=== PATIENT | female | born 1930 | race Caucasian/White ===

== ENCOUNTER 2017-02-02 10:55 | Observation (INO) | payer MEDICARE, OTHER ==
[2017-02-02] VITALS (8 sets, daily range): BP systolic 120–150; BP diastolic 65–77; PULSE 58–76; RESP 16–20; TEMP 97.8–97.9; O2SAT 96–99
[~2017-02-02] VITALS: Ht 162.6 cm; Wt 52.0 kg
[2017-02-02] MEDS ORDERED: ASPI1TAB69 PO (11:04)
[2017-02-02] MEDS ORDERED: PRAV10TA PO (11:04)
--- NOTE | 2017-02-02 11:06 | PD ---
HPI Chief Complaint: Fall Time Seen by Provider: 11:06 Travel History International Travel<30 days: No Contact w/Intl Traveler<30days: No Traveled to known affect area: No History of Present Illness HPI 86-year-old female came to the emergency room with history of fall while she was using her walker. One of the leg of the walker got caught and she tripped and fell. After she fell she hit her head on the floor and bled. This made her pass out she said. When she got up she cleaned the floor and wiped out blood and called the EMS and came to the emergency room. Here she is awake and answering questions appropriately. She remembers the event. Vital signs are stable. FORMERLY [facility] Past Medical History Narrative Medical List of her past medical, surgical, social and family history was reviewed from the nursing note. Hx Anticoagulant Therapy: Yes (ASA 81 MG PO) Arthritis: Yes Asthma: No Autoimmune Disease: No Heart Rhythm Problems: Yes (murmur) Cardiovascular Problems: Yes High Cholesterol: Yes Chest Pain: Yes Congestive Heart Failure: No COPD: No Cerebrovascular Accident: No Diabetes: No GERD: No Glaucoma: No Headaches: No Hepatitis: No Hiatal Hernia: No Hypertension: No Kidney Stones: No Myocardial Infarction: No Renal Failure: No Seizures: No Sleep Apnea: No Thyroid Disease: No Ulcer: No ?: Not Past Surgical History Abdominal Surgery: No AICD: No Cardiac Surgery: No Ear Surgery: No Endocrine Surgery: No Eye Surgery: No Genitourinary Surgery: No Gynecologic Surgery: No Oral Surgery: No Pacemaker: No Thoracic Surgery: No Social History Alcohol Use: Yes Tobacco Use: No Substance Use: No Allergies-Medications (Allergen,Severity, Reaction): Coded Allergies: No Known Allergies (Verified , 02/02/17) Comments No known drug allergies. Reported Meds & Prescriptions Reported Meds & Active Scripts Active Reported Pravastatin 10 Mg Tab 10 Mg PO HS Aspirin 81 Mg Tabdr 81 Mg PO DAILY Narrative Medication List of her home medications reviewed from the nursing note. Review of Systems Except as stated in HPI: all other systems reviewed are Neg Physical Exam Narrative GENERAL: Awake, alert, elderly, no obvious distress SKIN: Warm and dry. HEAD: 2 cm laceration on the left side of her forehead. Bleeding controlled EYES: Pupils equal and round. No scleral icterus. No injection or drainage. ENT: No nasal bleeding or discharge. Mucous membranes pink and moist. NECK: Trachea midline. No JVD. CARDIOVASCULAR: Regular rate and rhythm. No murmur appreciated. RESPIRATORY: No accessory muscle use. Clear to auscultation. Breath sounds equal bilaterally. GASTROINTESTINAL: Abdomen soft, non-tender, nondistended. Hepatic and splenic margins not palpable. MUSCULOSKELETAL: No obvious deformities. No clubbing. No cyanosis. No edema. NEUROLOGICAL: Awake and alert. No obvious cranial nerve deficits. Motor grossly within normal limits. Normal speech. PSYCHIATRIC: Appropriate mood and affect; insight and judgment normal. Data Data Last Documented VS Vital Signs Date Time Temp Pulse Resp B/P Pulse Ox O2 Delivery O2 Flow Rate FiO2 02/02/17 12:30 58 17 150/65 99 Room Air 02/02/17 10:59 97.8 Orders Electrocardiogram (02/02/17 ) Complete Blood Count With Diff (02/02/17 11:14) Basic Metabolic Panel (Bmp) (02/02/17 11:14) Troponin I (02/02/17 11:14) Ct Brain W/O Iv Contrast(Rout) (02/02/17 11:14) Ecg Monitoring (02/02/17 11:14) Iv Access Insert/Monitor (02/02/17 11:14) Oximetry (02/02/17 11:14) Sodium Chloride 0.9% Flush (Ns Flush) (02/02/17 11:15) Ct Cerv Spine W/O Contrast (02/02/17 ) Sodium Chlor 0.9% 250 Ml Inj (Ns 250 Ml (02/02/17 11:15) Tetanus/Diphtheria Tox Adult (Tetanus/Di (02/02/17 11:15) Chest, Single Ap (02/02/17 ) Wound Care (02/02/17 12:53) Lidocai-Epi 1%-1:100,000 Inj (Xylocaine- (02/02/17 13:00) Admit Order (Ed Use Only) (02/02/17 13:18) Aspirin Ec (Ecotrin Ec) (02/03/17 09:00) Pravastatin (Pravachol) (02/02/17 21:00) Labs Laboratory Tests Test 02/02/17 11:00 White Blood Count 11.6 TH/MM3 Red Blood Count 3.81 MIL/MM3 Hemoglobin 11.7 GM/DL Hematocrit 34.0 % Mean Corpuscular Volume 89.4 FL Mean Corpuscular Hemoglobin 30.6 PG Mean Corpuscular Hemoglobin 34.3 % Concent Red Cell Distribution Width 14.2 % Platelet Count 209 TH/MM3 Mean Platelet Volume 9.0 FL Neutrophils (%) (Auto) 90.5 % Lymphocytes (%) (Auto) 5.5 % Monocytes (%) (Auto) 3.4 % Eosinophils (%) (Auto) 0.2 % Basophils (%) (Auto) 0.4 % Neutrophils # (Auto) 10.5 TH/MM3 Lymphocytes # (Auto) 0.6 TH/MM3 Monocytes # (Auto) 0.4 TH/MM3 Eosinophils # (Auto) 0.0 TH/MM3 Basophils # (Auto) 0.1 TH/MM3 CBC Comment DIFF FINAL Differential Comment Sodium Level 139 MEQ/L Potassium Level 3.9 MEQ/L Chloride Level 104 MEQ/L Carbon Dioxide Level 27.2 MEQ/L Anion Gap 8 MEQ/L Blood Urea Nitrogen 19 MG/DL Creatinine 1.04 MG/DL Estimat Glomerular Filtration 50 ML/MIN Rate Random Glucose 140 MG/DL Calcium Level 9.0 MG/DL Troponin I 0.02 NG/ML MDM Medical Decision Making Medical Screen Exam Complete: Yes Emergency Medical Condition: Yes Medical Record Reviewed: Yes Interpretation(s) Twelve-lead EKG was reviewed by me. Normal sinus rhythm, left axis deviation, bradycardia, prolonged QT, nonspecific ST-T wave changes. Heart rate of 57 bpm. Differential Diagnosis Intracranial bleed, head injury, electrolyte abnormality Narrative Course 1:05 PM blood test and CT scan reports of back and within normal limit. The PA will take care of the laceration. Please refer to his note regarding the procedure. I would like to admit the patient for overnight observation because of the syncope and prolonged QT syndrome. Especially since she lives by herself at home. Procedures EKG Prior to Arrival: Yes Diagnosis Primary Impression: Syncope Qualified Code: R55 - Syncope, unspecified syncope type Additional Impressions: Head injury Qualified Code: S09.90XA - Head injury, initial encounter Prolonged Q-T interval on ECG Admitting Information Admitting Physician Requests: Observation Jose Harrison MD Feb 02, 2017 11:06
[2017-02-02] MEDS ORDERED: SODIUM CHLORIDE 0.9% FLUSH 5 ML FLUSH IVF PRN (11:15)
[2017-02-02] MEDS ORDERED: TETANUS/DIPHTHERIA TOXOID ADULT 0.5 ML VIAL IM ONE (11:15)
[2017-02-02] MEDS ORDERED: SODIUM CHLOR 0.9% 250 ML INJ 250 ML IV ONE (11:15)
[2017-02-02 11:38] LABS: AUTOMATED NEUTROPHIL # 10.5 TH/MM3 (1.8-7.7); BASOPHIL # 0.1 TH/MM3 (0-0.2); BASOPHIL % 0.4 % (0.0-2.0); EOSINOPHIL % 0.2 % (0.0-4.0); HEMO FLAGS DIFF FINAL; LYMPH % 5.5 % (9.0-44.0); LYMPHOCYTE # 0.6 TH/MM3 (1.0-4.8); MEAN CELL VOLUME 89.4 FL (80.0-100.0); MEAN CORPUSCULAR HEMOGLOBIN 30.6 PG (27.0-34.0); MEAN CORPUSCULAR HGB CONC 34.3 % (32.0-36.0); MONO % 3.4 % (0.0-8.0); NEUT % 90.5 % (16.0-70.0); PLATELET COUNT 209 TH/MM3 (150-450); RED BLOOD COUNT 3.81 MIL/MM3 (4.00-5.30); RED CELL DISTRIBUTION WIDTH 14.2 % (11.6-17.2); WHITE BLOOD COUNT 11.6 TH/MM3 (4.0-11.0)
[2017-02-02 11:59] LABS: BICARBONATE 27.2 MEQ/L (21.0-32.0); POTASSIUM 3.9 MEQ/L (3.5-5.1)
--- NOTE | 2017-02-02 12:08 | RADRPT ---
EXAM DATE/TIME: 02/02/2017 11:57 [facility] COMPARISON: No previous studies available for comparison. INDICATIONS : Weakness, fall, laceration on left side of face RADIATION DOSE: 31.84 CTDIvol (mGy) MEDICAL HISTORY : Cardiovascular disease. SURGICAL HISTORY : None. ENCOUNTER: Initial ACUITY: 1 day PAIN SCALE: 2/10 LOCATION: cranial TECHNIQUE: Multiple contiguous axial images were obtained of the head. Using automated exposure control and adj ustment of the mA and/or kV according to patient size, radiation dose was kept as low as reasonably a chievable to obtain optimal diagnostic quality images. FINDINGS: CEREBRUM: Atrophy. Area of low attenuation change involving the cortex and subcortical white matter of the left frontal lobe and left temporal lobe. The ventricles are normal for age. No evidence of midline shif t, mass lesion, hemorrhage or acute infarction. No extra-axial fluid collections are seen. POSTERIOR FOSSA: The cerebellum and brainstem are intact. The 4th ventricle is midline. The cerebellopontine angle i s unremarkable. EXTRACRANIAL: The visualized portion of the orbits is intact. SKULL: The calvaria is intact. No evidence of skull fracture. CONCLUSION: 1. No acute intracranial abnormality. 2. Area of encephalomalacia involving the left frontal lobe and left temporal lobe. Caesar Holley Jr., MD on February 02, 2017 at 12:02 Board Certified Radiologist. This report was verified electronically.
--- NOTE | 2017-02-02 12:09 | RADRPT ---
EXAM DATE/TIME: 02/02/2017 11:26 [facility] COMPARISON: No previous studies available for comparison. INDICATIONS : Syncope. MEDICAL HISTORY : None. SURGICAL HISTORY : None. ENCOUNTER: Initial ACUITY: 1 day PAIN SCORE: 0/10 LOCATION: Bilateral chest FINDINGS: The lungs are hyperinflated. There is no evidence of acute airspace disease, congestion or suspicious mass densities. Heart is mildly enlarged. CONCLUSION: Cardiomegaly without evidence of acute process. COPD Garrett Fagan MD on February 02, 2017 at 12:03 Board Certified Radiologist. This report was verified electronically.
--- NOTE | 2017-02-02 12:56 | RADRPT ---
EXAM DATE/TIME: 02/02/2017 11:57 [facility] COMPARISON: No previous studies available for comparison. INDICATIONS : Weakness, fall. Posterior neck pain. RADIATION DOSE: 12.52 CTDIvol (mGy) MEDICAL HISTORY : Cardiovascular disease. SURGICAL HISTORY : None. ENCOUNTER: Initial ACUITY: 2 days PAIN SCALE: 4/10 LOCATION: Neck posterior TECHNIQUE: Volumetric scanning of the cervical spine was performed. Multiplanar reconstructions i n the sagittal, coronal and oblique axial planes were performed. Using automated exposure control a nd adjustment of the mA and/or kV according to patient size, radiation dose was kept as low as reason ably achievable to obtain optimal diagnostic quality images. FINDINGS: VERTEBRAE: Normal vertebral body height. ALIGNMENT: There is mild anterior subluxation of C6 on C7 and C7 on T1 in the order of 2 mm likel y secondary to a facet hypertrophy. C2-C3: The disc space is grossly intact. A significant impression on the thecal sac is not seen. T here is prominent right facet hypertrophy. The neural foramina are grossly normal. C3-C4: The posterior disc margin is grossly intact. Significant spinal stenosis is not appreciated. There is bilateral facet hypertrophy being worse on the right. There is some narrowing of the righ t neural foramen. C4-C5: The posterior disc margin is grossly intact. A significant impression on the thecal sac is n ot seen. There is bilateral facet hypertrophy being worse on the right. There is some narrowing of the right neural foramen. The left neural foramen appears intact. There is mild uncovertebral hyper trophy at this level. C5-C6: The disc space is narrowed. There is a vacuum phenomenon. There is posterior osteophytic ri dging. This causes a mild impression on the thecal sac. There is uncovertebral and facet hypertroph y. There is minimal narrowing of the neural foramina. C6-C7: Again noted is the anterior subluxation of C6 on C7. The posterior disc margin appears gross ly intact. Significant spinal stenosis is not seen. The neural foramina are normal. There is bilat eral facet hypertrophy. C7-T1: Again noted is the mild anterior subluxation of C7 on T1. A significant impression on the th ecal sac is not seen. The neural foramina are normal. There is moderate bilateral facet hypertrophy . CONCLUSION: Degenerative change throughout as described above. An acute bony abnormality is not seen. Kameron Fu MD on February 02, 2017 at 12:45 Board Certified Radiologist. This report was verified electronically.
[2017-02-02] MEDS: LIDOCAINE 1%/EPINEPHrine 1:100,000 SOLN 20 ML VIAL INFIL ONE ×2 (12:58→13:18)
--- NOTE | 2017-02-02 13:10 | PD ---
Physical Exam Date Seen by Provider: Feb 02, 2017 Time Seen by Provider: 13:09 Narrative 86-year-old female that presents to the ED for evaluation of laceration. Please refer to my attendings note as I was asked by my attending to repair laceration. Data Data Last Documented VS Vital Signs Date Time Temp Pulse Resp B/P Pulse Ox O2 Delivery O2 Flow Rate FiO2 02/02/17 12:30 58 17 150/65 99 Room Air 02/02/17 10:59 97.8 Orders Electrocardiogram (02/02/17 ) Complete Blood Count With Diff (02/02/17 11:14) Basic Metabolic Panel (Bmp) (02/02/17 11:14) Troponin I (02/02/17 11:14) Ct Brain W/O Iv Contrast(Rout) (02/02/17 11:14) Ecg Monitoring (02/02/17 11:14) Iv Access Insert/Monitor (02/02/17 11:14) Oximetry (02/02/17 11:14) Sodium Chloride 0.9% Flush (Ns Flush) (02/02/17 11:15) Ct Cerv Spine W/O Contrast (02/02/17 ) Sodium Chlor 0.9% 250 Ml Inj (Ns 250 Ml (02/02/17 11:15) Tetanus/Diphtheria Tox Adult (Tetanus/Di (02/02/17 11:15) Chest, Single Ap (02/02/17 ) Wound Care (02/02/17 12:53) Lidocai-Epi 1%-1:100,000 Inj (Xylocaine- (02/02/17 13:00) Labs Laboratory Tests Test 02/02/17 11:00 White Blood Count 11.6 TH/MM3 Red Blood Count 3.81 MIL/MM3 Hemoglobin 11.7 GM/DL Hematocrit 34.0 % Mean Corpuscular Volume 89.4 FL Mean Corpuscular Hemoglobin 30.6 PG Mean Corpuscular Hemoglobin 34.3 % Concent Red Cell Distribution Width 14.2 % Platelet Count 209 TH/MM3 Mean Platelet Volume 9.0 FL Neutrophils (%) (Auto) 90.5 % Lymphocytes (%) (Auto) 5.5 % Monocytes (%) (Auto) 3.4 % Eosinophils (%) (Auto) 0.2 % Basophils (%) (Auto) 0.4 % Neutrophils # (Auto) 10.5 TH/MM3 Lymphocytes # (Auto) 0.6 TH/MM3 Monocytes # (Auto) 0.4 TH/MM3 Eosinophils # (Auto) 0.0 TH/MM3 Basophils # (Auto) 0.1 TH/MM3 CBC Comment DIFF FINAL Differential Comment Sodium Level 139 MEQ/L Potassium Level 3.9 MEQ/L Chloride Level 104 MEQ/L Carbon Dioxide Level 27.2 MEQ/L Anion Gap 8 MEQ/L Blood Urea Nitrogen 19 MG/DL Creatinine 1.04 MG/DL Estimat Glomerular Filtration 50 ML/MIN Rate Random Glucose 140 MG/DL Calcium Level 9.0 MG/DL Troponin I 0.02 NG/ML MDM Medical Record Reviewed: Yes Supervised Visit with GUNNAR: No Procedures Procedure Narrative LACERATION LOCATION: left face LENGTH: 1 cm NUMBER OF STITCHES/EMMY: 2 steristrips and dermabond REPAIR: The area of the laceration was prepped with Betadine and sterilely draped. The laceration was infiltrated with 1% Xylocaine. The wound was copiously irrigated and explored without evidence of foreign body, tendon injury or neurovascular injury. The wound was closed using dermabond and steristrip. This was a 1 layer repair. A sterile dressing was applied. The patient was advised to keep the dressing clean and dry. Patient tolerated the procedure well. Diagnosis Primary Impression: Syncope Qualified Code: R55 - Syncope, unspecified syncope type Additional Impression: Head injury Qualified Code: S09.90XA - Head injury, initial encounter Gerry Zavala Feb 02, 2017 13:10
[2017-02-02] MEDS ORDERED: ACETAMINOPHEN 325 MG TAB PO PRN (13:30)
[2017-02-02] MEDS ORDERED: SODIUM CHLORIDE 0.9% FLUSH 5 ML FLUSH FLUSH PRN (13:30)
[2017-02-02] MEDS ORDERED: MAGNESIUM HYDROXIDE SUSP 30 ML CUP PO PRN (13:30)
[2017-02-02] MEDS ORDERED: PROCHLORPERAZINE 25 MG SUPP PR PRN (13:30)
[2017-02-02] MEDS ORDERED: ONDANSETRON HCL 4 MG/2 ML VIAL IVP PRN (13:30)
[2017-02-02] MEDS ORDERED: SENNOSIDES 8.6 MG TAB PO PRN (13:30)
[2017-02-02] MEDS ORDERED: BISACODYL 10 MG SUPP PR PRN (13:30)
--- NOTE | 2017-02-02 13:51 | HHI.HP ---
[facility] Service [facility] Primary Care Physician Eugenia Hyman MD Admission Diagnosis syncope, head injury Diagnoses: Chief Complaint: fall at home, nausea, dizziness Travel History International Travel<30 Days: No Contact w/Intl Traveler <30 Da: No Traveled to Known Affected Are: No History of Present Illness Very pleasant 86 yo F with PMH of HLD otherwise healthy came to the emergency room with history of fall while she was using her walker. One of the leg of the walker got caught and she tripped and fell. After she fell she hit her head on the floor and bled. This made her pass out she said. When she got up she cleaned the floor and wiped out blood and called the EMS and came to the emergency room. Here she is awake and answering questions appropriately. She remembers the event. She had the laceration repaired in the ED. Denies having any chest pain. No sob. No n/v/d/c. She however reports feeling nauseated earlier today but did not vomit, she went for a nap and then when she woke up and tried to walk with the walker felt nauseated again and lightheaded. Did not vomit. No fever or chills. Denies associated sob. Says she has a h/o heart murmur and used to follow with Dr Escalante cardiology. Says her mother also had Aortic stenosis and had replacement of the aortic valve at 86 years of age and she lived in late 90s. Vital signs are stable. Review of Systems Except as stated in HPI: all other systems reviewed are Neg 12 ROS reviewed and negative except as stated in HPI Past Family Social History Past Medical History Hyperlipidemia Osteoarthritis Past Surgical History Nephrology surgery Cataract surgery Shoulder surgery Reported Medications Reported Meds & Active Scripts Active Reported Pravastatin 10 Mg Tab 10 Mg PO HS Aspirin 81 Mg Tabdr 81 Mg PO DAILY Allergies: Coded Allergies: No Known Allergies (Verified , 02/02/17) Family History Her mother had aortic valve replacement at the age of 85 and at the age of 97. Social History Denies alcohol use, tobacco use or illicit drug use. Physical Exam Vital Signs Vital Signs Date Time Temp Pulse Resp B/P Pulse Ox O2 Delivery O2 Flow Rate FiO2 02/02/17 12:30 58 17 150/65 99 Room Air 02/02/17 11:16 16 99 Room Air 02/02/17 11:07 62 12 99 Room Air 02/02/17 10:59 97.8 62 16 124/76 99 Physical Exam GENERAL: This is a very pleasant 86 yo female, well-nourished, well-developed patient, in no apparent distress. SKIN: No rashes, ecchymoses or lesions. Cool and dry. HEAD: 2 cm laceration on the left side of her forehead, repaired, no bleeding. EYES: Pupils equal round and reactive. Extraocular motions intact. No scleral icterus. No injection or drainage. ENT: Nose without bleeding, purulent drainage or septal hematoma. Throat without erythema, tonsillar hypertrophy or exudate. Uvula midline. Airway patent. NECK: Trachea midline. No JVD or lymphadenopathy. Supple, nontender, no meningeal signs. CARDIOVASCULAR: Regular rate and rhythm without murmurs, gallops, or rubs. RESPIRATORY: Clear to auscultation. Breath sounds equal bilaterally. No wheezes , rales, or rhonchi. GASTROINTESTINAL: Abdomen soft, non-tender, nondistended. No hepato-splenomegaly , or palpable masses. No guarding. MUSCULOSKELETAL: Extremities without clubbing, cyanosis, or edema. No joint tenderness, effusion, or edema noted. No calf tenderness. Negative Homans sign bilaterally. NEUROLOGICAL: Awake and alert. Cranial nerves II through XII intact. Motor and sensory grossly within normal limits. Five out of 5 muscle strength in all muscle groups. Normal speech. Laboratory Laboratory Tests Test 02/02/17 11:00 White Blood Count 11.6 Red Blood Count 3.81 Hemoglobin 11.7 Hematocrit 34.0 Mean Corpuscular Volume 89.4 Mean Corpuscular Hemoglobin 30.6 Mean Corpuscular Hemoglobin 34.3 Concent Red Cell Distribution Width 14.2 Platelet Count 209 Mean Platelet Volume 9.0 Neutrophils (%) (Auto) 90.5 Lymphocytes (%) (Auto) 5.5 Monocytes (%) (Auto) 3.4 Eosinophils (%) (Auto) 0.2 Basophils (%) (Auto) 0.4 Neutrophils # (Auto) 10.5 Lymphocytes # (Auto) 0.6 Monocytes # (Auto) 0.4 Eosinophils # (Auto) 0.0 Basophils # (Auto) 0.1 CBC Comment DIFF FINAL Differential Comment Sodium Level 139 Potassium Level 3.9 Chloride Level 104 Carbon Dioxide Level 27.2 Anion Gap 8 Blood Urea Nitrogen 19 Creatinine 1.04 Estimat Glomerular Filtration 50 Rate Random Glucose 140 Calcium Level 9.0 Troponin I 0.02 Result Diagram: 02/02/17 1100 02/02/17 1100 Imaging Last Impressions Carotid Artery Ultrasound 02/02/17 0000 Signed Impressions: Service Date/Time: Thursday, February 02, 2017 14:00 - CONCLUSION: Plaque at the carotid bulb regions without a significant stenosis. Kameron Fu MD Assessment and Plan Assessment and Plan 86-year-old female with Syncope and fall at home. Laceration occipital area Mild bradycardia, increased ST interval CT head reviewed, findings discussed with Dr Oliva ER physician and no acute findings, no bleeding Check 2D ECHO Check carotic US, reviewed, without significant stenosis Monitor on telemetry Holter monitor Keep normoglycemic, normotensive Neuro checks. Monitor VS Labs are fairly normal Restart home meds ASa and statin DVT ppx SCD/TEDs Code Status full code Discussed Condition With patient, nurse, ED physician Nina Frias MD Feb 02, 2017 13:51
--- NOTE | 2017-02-02 15:30 | RADRPT ---
EXAM DATE/TIME: 02/02/2017 14:00 [facility] COMPARISON: No previous studies available for comparison. EXTERNAL COMPARISON : [facility], US CAROTID ARTERIES, June 28, 2014 INDICATIONS : Syncope. MEDICAL HISTORY : Hypercholesterolemia. Anticoagulant therapy. Arthritis. SURGICAL HISTORY : Cataract removal. Orthopedic surgery. ENCOUNTER: Subsequent ACUITY: 1 day PAIN SCORE: 0/10 LOCATION: Bilateral neck PEAK SYSTOLIC VELOCITIES (cm/sec): ICA/CCA RATIO: Right: 1.5 Left: 1.2 ICA: Right: 129 Left: 122 CCA: Right: 89 Left: 104 ECA: Right: 223 Left: 100 VERTEBRAL: Right: 86 antegrade Left: 116 antegrade Elevated flow velocities and ICA/CCA ratios have been found to correlate with increased degrees of vessel stenosis, calculated as percentage of diameter relative to a normal segment of distal ICA/CCA FINDINGS: RIGHT CAROTID: There is mild plaque at the carotid bulb region. No significant stenosis is visualized. The waveform s are within normal limits. LEFT CAROTID: There is mild plaque at the carotid bulb region. No significant stenosis is visualized. The waveform s are within normal limits. VERTEBRAL ARTERIES: Antegrade flow is seen in both vertebral arteries. MISCELLANEOUS: None. CONCLUSION: Plaque at the carotid bulb regions without a significant stenosis. Kameron Fu MD on February 02, 2017 at 15:23 Board Certified Radiologist. This report was verified electronically.
[2017-02-02] MEDS ORDERED: PRAVASTATIN SOD 10 MG TAB PO SCH (21:00)
[2017-02-02] MEDS: SODIUM CHLORIDE 0.9% FLUSH 5 ML FLUSH FLUSH SCH (21:11)
[2017-02-03 00:01] VITALS: BP 140/67; PULSE 80; RESP 20; TEMP 97.9; O2SAT 95
[2017-02-03 04:23] LABS: AUTOMATED NEUTROPHIL # 5.8 TH/MM3 (1.8-7.7); BASOPHIL % 0.4 % (0.0-2.0); EOSINOPHIL # 0.1 TH/MM3 (0-0.4); EOSINOPHIL % 0.9 % (0.0-4.0); HEMATOCRIT 32.6 % (35.0-46.0); HEMO FLAGS DIFF FINAL; LYMPH % 14.5 % (9.0-44.0); LYMPHOCYTE # 1.1 TH/MM3 (1.0-4.8); MEAN CELL VOLUME 89.6 FL (80.0-100.0); MEAN CORPUSCULAR HEMOGLOBIN 30.4 PG (27.0-34.0); MEAN CORPUSCULAR HGB CONC 33.9 % (32.0-36.0); MONO % 7.4 % (0.0-8.0); NEUT % 76.8 % (16.0-70.0); PLATELET COUNT 179 TH/MM3 (150-450); RED BLOOD COUNT 3.63 MIL/MM3 (4.00-5.30); WHITE BLOOD COUNT 7.5 TH/MM3 (4.0-11.0)
[2017-02-03 04:27] VITALS: BP 129/58; PULSE 67; RESP 20; TEMP 98.4; O2SAT 96
[2017-02-03 04:46] LABS: BICARBONATE 23.2 MEQ/L (21.0-32.0); POTASSIUM 3.8 MEQ/L (3.5-5.1)
[2017-02-03 08:00] VITALS: PULSE 64
[2017-02-03 08:28] VITALS: BP 140/69; PULSE 64; RESP 18; TEMP 97.2; O2SAT 95
[2017-02-03] MEDS ORDERED: ASPIRIN EC 81 MG TABEC PO SCH (09:00)
[2017-02-03] MEDS: SODIUM CHLORIDE 0.9% FLUSH 5 ML FLUSH FLUSH SCH (09:30)
--- NOTE | 2017-02-03 09:41 | EC ---
Study Study Date:02/02/2017 STUDY CONCLUSIONS SUMMARY - Left ventricle: The cavity size was normal. Wall thickness was normal. Systolic function was normal. The estimated ejection fraction was in the range of 55% to 60%. Wall motion was normal; there were no regional wall motion abnormalities. Doppler parameters are consistent with abnormal left ventricular relaxation (grade 1 diastolic dysfunction). - Mitral valve: Mildly calcified annulus. If LV function is below 40, please consider prescribing an ACEI or ARB or document rationale for non-use. PROCEDURE DATA STUDY STATUS: Elective. Procedure: Transthoracic echocardiography. Image quality was good. Scanning was performed from the parasternal, apical, and subcostal acoustic windows. Study completion: The patient tolerated the procedure well. Transthoracic echocardiography. M-mode, complete 2D, complete spectral Doppler, and color Doppler. Patient status: Inpatient. CARDIAC ANATOMY LEFT VENTRICLE: The cavity size was normal. Wall thickness was normal. There was no hypertrophy. Systolic function was normal. The estimated ejection fraction was in the range of 55% to 60%. Wall motion was normal; there were no regional wall motion abnormalities. Doppler parameters are consistent with abnormal left ventricular relaxation (grade 1 diastolic dysfunction). AORTIC VALVE: Trileaflet; mildly thickened leaflets. Doppler: There was no stenosis. No significant regurgitation. MITRAL VALVE: Mildly calcified annulus. Doppler: There was no evidence for stenosis. Trace to mild regurgitation. LEFT ATRIUM: The atrium was normal in size. ATRIAL SEPTUM: No defect or patent foramen ovale was identified. RIGHT VENTRICLE: The cavity size was normal. PULMONIC VALVE: Not well visualized. Doppler: There was no evidence for stenosis. Trace regurgitation. TRICUSPID VALVE: The valve appears to be grossly normal. Doppler: There was no evidence for stenosis. Trace regurgitation. PERICARDIUM: There was no pericardial effusion. Prepared and signed by Car Smallwood [id number]
[2017-02-03] MEDS ORDERED: METOPROLOL TARTRATE 25 MG TAB PO SCH (11:15)
--- NOTE | 2017-02-03 11:17 | HHI.DCPOC ---
Discharge Care Plan Goals to Promote Your Health * To prevent worsening of your condition and complications * To maintain your health at the optimal level Directions to Meet Your Goals Take your medications as prescribed Follow your dietary instruction Follow activity as directed Keep your appointments as scheduled Take your immunizations and boosters as scheduled If your symptoms worsen call your PCP, if no PCP go to Urgent Care Center or Emergency Room Smoking is Dangerous to Your Health. Avoid second hand smoke Call the 24-hour hour crisis hotline for domestic abuse at Nina Aguirre MD Feb 03, 2017 11:17
[2017-02-03 11:52] VITALS: BP 180/80; PULSE 70
[2017-02-03 12:00] VITALS: BP 160/76
--- NOTE | 2017-02-03 12:50 | MB ---
cc: WYATT GREEN M.D. DATE OF CONSULTATION 02/03/2017 REASON FOR CONSULTATION Syncopal episode HISTORY OF PRESENT ILLNESS This is an 86-year-old female who has a past medical history of hyperlipidemia. The patient apparently was walking and tripped and lost consciousness for couple of minutes. She denies any preceding symptoms of chest pain or shortness of breath. She also denies PND, orthopnea, lower extremity edema or recent weight gain. The initial workup in [facility] emergency room included an echocardiogram which was essentially within normal limits. CT scan of the head showed no acute CVA and the carotid Doppler showed mild plaque without evidence of stenosis. I was consulted for further evaluation and management. ALLERGIES Unknown SOCIAL HISTORY Nonsmoker, nondrinker. FAMILY HISTORY Noncontributory REVIEW OF SYSTEMS HEENT: Positive for syncope. CARDIOVASCULAR: No history of coronary artery disease in the past. PULMONARY: No history of asthma or COPD. GI: No history of GERD or GI bleed. The remainder of her review of systems is within normal limits. PHYSICAL EXAM VITAL SIGNS: Blood pressure of 140/70 with a heart rate 60, respiratory rate of 12. The patient is afebrile. NECK: Supple with no jugular venous distension. CHEST: Clear to auscultation and percussion. HEART: S1 normal intensity, S2 single. Regular rate and rhythm. No S3 appreciated. ABDOMEN: Benign. EXTREMITIES: No edema, clubbing or cyanosis. IMPRESSION 1. Syncope, 2. Hyperlipidemia RECOMMENDATIONS The patient's 2-dimensional echocardiogram is within normal limits. I recommend a Holter monitor. I will see the patient in my office for follow up. MD ED Arellano/YARELI /9:39 AM /11:43 AM
--- NOTE | 2017-02-03 15:01 | EKG ---
Date Performed: 02/02/2017 Time Performed: 11:07:48 PTAGE: 86 years EKG: SINUS BRADYCARDIA NONSPECIFIC T-WAVE ABNORMALITY PROLONGED QT INTERVAL ABNORMAL ECG Compare d to PREVIOUS TRACING , QT interval is longer. PREVIOUS TRACIN08/15/2004 20.10 DOCTOR: Jonny Jean-Baptiste Interpretating Date/Time 02/03/2017 14:57:27
--- NOTE | 2017-02-04 20:38 | HM ---
Date Performed: 02/02/2017 Time Performed: 22:05:00 HOOKUP DATE: 02/02/17 10:05:00 PM Mon ANALYSIS START TIME: 02/02/2017 10:10:00 PM ANALYSIS END TIME: 02/03/2017 1:34:52 PM PATIENT AGE: 86 PATIENT HEIGHT PATIENT WEIGHT DRUG LIST PATIENT DIAGNOSIS: SYNCOPE TEST NARRATIVE: The patient's average heart rate was 71 BPM. No episodes of tachycardia wer e noted. No episodes of bradycardia were noted. No pauses exceeding 2.0 seconds were noted. 531 ventricular ectopics, which represented 1% of the total beat count, were noted. The highest vent ricular ectopic frequency occurred from 09:00 AM to 10:00 AM Tue. During this time 65 VE(s) occurred . Ventricular ectopics were observed as 519 isolated beat(s), as 3 couplet(s) and as 1 run(s). Some of the ventricular beats occurred in bigeminal cycles. No supraventricular ectopics were noted. No episodes of ST depression (defined as -1.0 mm or more) were noted in channel 1. No episodes o f ST depression (defined as -1.0 mm or more) were noted in channel 2. No episodes of ST depression ( defined as -1.0 mm or more) were noted in channel 3. NO PATIENT DIARY RETURNED TEST INTERPRETATION: Sinus rhythm Frequent PVCs Brief episodes of NSVT Signed by : Fawad Garcia
== END 2017-02-03 14:10 | disposition home or self-care (01) ==
LOC: NEPA 10:55 → NEDA 13:20 → NEPFCDU 14:55
PROVIDERS: ADMIT Hospitalist; ATTEND Hospitalist
DX: R55 Syncope and collapse (principal); S09.90XA Unspecified injury of head, initial encounter; W01.198A Fall on same level from slipping, tripping and stumbling with subsequent striking against other object, initial encounter; Z91.81 History of falling; Z79.82 Long term (current) use of aspirin; M19.90 Unspecified osteoarthritis, unspecified site; R01.1 Cardiac murmur, unspecified; E78.00 Pure hypercholesterolemia, unspecified; R07.9 Chest pain, unspecified; I45.81 Long QT syndrome; Z23 Encounter for immunization; E78.5 Hyperlipidemia, unspecified; R11.0 Nausea; R00.1 Bradycardia, unspecified; R94.31 Abnormal electrocardiogram [ECG] [EKG]
CPT/HCPCS: 12011; 70450; 71010; 72125; 80048; 84484; 85025; 90471; 90714; 93005; 93225; 93226; 93306; 93880; 96360; 97163; 99285; G0378; G8987; G8988; J7050

== ENCOUNTER 2017-02-18 06:34 | Emergency (ER) | payer MEDICARE, OTHER ==
[~2017-02-18] VITALS: Ht 162.6 cm; Wt 52.0 kg
[~2017-02-18 06:34] MED LIST: ASPI1TAB69 PO; PRAV10TA PO
[2017-02-18 06:36] VITALS: BP 173/75; PULSE 90; RESP 18; TEMP 98; O2SAT 99
--- NOTE | 2017-02-18 07:21 | PD ---
HPI Chief Complaint: Back/ Neck Pain or Injury Time Seen by Provider: 07:15 Travel History International Travel<30 days: No Contact w/Intl Traveler<30days: No Traveled to known affect area: No History of Present Illness HPI 86-year-old female came to the emergency room with history of neck pain that started yesterday. Patient says she woke up yesterday morning with this pain on the right side of her neck. She tried to put some ice pack throughout the day and thought it got little better but this morning when she woke up the pain came back as bad. She decided to come here and be checked out. She was in the emergency room 2 weeks ago after syncopal episode and head injury from the fall. Coincidently had seen this patient at that time. She was admitted for 24 -hour observation. She has not had anymore syncopal episode but she is not sure and concerned about her neck pain. No history of fever or chills. No history of nausea or vomiting. She says she is having hard time turning her head [id number] or up and down. Vital signs were relatively stable in the emergency room. She is here with a friend. [facility] Past Medical History Narrative Medical List of her past medical, surgical, social, family history was reviewed from the nursing note Hx Anticoagulant Therapy: Yes (ASA 81 MG PO) Arthritis: Yes Asthma: No Autoimmune Disease: No Heart Rhythm Problems: Yes (hx of murmur) Cancer: No Cardiovascular Problems: Yes High Cholesterol: Yes Chest Pain: Yes Congestive Heart Failure: No COPD: No Cerebrovascular Accident: No Diabetes: No Diminished Hearing: No GERD: No Glaucoma: No Headaches: No Hepatitis: No Hiatal Hernia: No Hypertension: No Kidney Stones: No Musculoskeletal: Yes (osteoporosis) Neurologic: No Psychiatric: No Reproductive: No Respiratory: No Myocardial Infarction: No Renal Failure: No Seizures: No Sleep Apnea: No Thyroid Disease: No Ulcer: No Influenza Vaccination: No Menopausal: Yes Past Surgical History Abdominal Surgery: No AICD: No Cardiac Surgery: No Ear Surgery: No Endocrine Surgery: No Eye Surgery: Yes (CATARACT) Genitourinary Surgery: No Gynecologic Surgery: No Oral Surgery: No Pacemaker: No Thoracic Surgery: No Other Surgery: Yes Social History Alcohol Use: Yes (RARE) Tobacco Use: No Substance Use: No Allergies-Medications (Allergen,Severity, Reaction): Coded Allergies: No Known Allergies (Verified , 02/18/17) Comments No known drug allergies. Reported Meds & Prescriptions Reported Meds & Active Scripts Active Naprosyn (Naproxen) 250 Mg Tab 250 Mg PO BID Flexeril (Cyclobenzaprine HCl) 5 Mg Tab 5 Mg PO BID PRN Reported Pravastatin 10 Mg Tab 10 Mg PO HS Aspirin 81 Mg Tabdr 81 Mg PO DAILY Narrative Medication List of his home medications reviewed from the nursing note. Review of Systems Except as stated in HPI: all other systems reviewed are Neg Physical Exam Narrative GENERAL: Awake, alert, elderly, mild distress SKIN: Warm and dry. HEAD: Atraumatic. Normocephalic. EYES: Pupils equal and round. No scleral icterus. No injection or drainage. ENT: No nasal bleeding or discharge. Mucous membranes pink and moist. NECK: Trachea midline. No JVD. Decreased range of motion laterally and vertically to to the pain and stiffness. Some paraspinal spasm CARDIOVASCULAR: Regular rate and rhythm. No murmur appreciated. RESPIRATORY: No accessory muscle use. Clear to auscultation. Breath sounds equal bilaterally. GASTROINTESTINAL: Abdomen soft, non-tender, nondistended. Hepatic and splenic margins not palpable. MUSCULOSKELETAL: No obvious deformities. No clubbing. No cyanosis. No edema. NEUROLOGICAL: Awake and alert. No obvious cranial nerve deficits. Motor grossly within normal limits. Normal speech. PSYCHIATRIC: Appropriate mood and affect; insight and judgment normal. Data Data Last Documented VS Vital Signs Date Time Temp Pulse Resp B/P Pulse Ox O2 Delivery O2 Flow Rate FiO2 02/18/17 08:00 62 23 160/73 98 Room Air 02/18/17 06:[address] Brain W/O Iv Contrast(Rout) (02/18/17 ) Ct Cerv Spine W/O Contrast (02/18/17 ) Orphenadrine Inj (Norflex Inj) (02/18/17 07:30) Acetamin-Hydrocod 325-5 Mg ([place] 5-325 (02/18/17 07:30) MDM Medical Decision Making Medical Screen Exam Complete: Yes Emergency Medical Condition: Yes Medical Record Reviewed: Yes Differential Diagnosis Torticollis, cervical spasm, vertebral fracture Narrative Course 7:[address] scan of the head and C-spine has been ordered. Awaiting for the CT to be done and resulted. Patient was given pain medication and muscle relaxants in the meanwhile. 9:28 AM CAT scan reports a back and shows degenerative changes but no acute injury. I reassessed the patient and she feels a little better. I'm going to discharge her home with prescription medication. Procedures EKG Prior to Arrival: No Diagnosis Primary Impression: Cervical radiculopathy Additional Impression: Torticollis Referrals: Primary Care Physician 2 days Additional Instructions: Please return to the ER if the condition worsens or any other new concerns.. Take the medications as per the prescription direction. The muscle relaxant will make you groggy. Do not drive while on the medication. Follow-up with your primary care in couple days. Drink lots of fluid while taking the pain medication. Med/Other Pt SpecificInfo: Prescription(s) given Scripts Naproxen (Naprosyn)250 Mg Oys763 Mg PO BID #14 TAB Ref 0 Prov:Jose Harrison MD 02/18/17 Cyclobenzaprine (Flexeril)5 Mg Tab5 Mg PO BID PRN (pain) #14 TAB Ref 0 Prov:Jose Harrison MD 02/18/17 Disposition: DISCHARGE HOME Condition: Stable Jose Harrison MD Feb 18, 2017 07:21
[2017-02-18] MEDS ORDERED: ORPHENADRINE INJ 60 MG/2 ML AMP IM ONE (07:30)
[2017-02-18] MEDS ORDERED: ACETAMINOPHEN/HYDROcodone 325 MG/5 MG TAB PO ONE (07:30)
[2017-02-18 08:00] VITALS: BP 160/73; PULSE 62; RESP 23; O2SAT 98
--- NOTE | 2017-02-18 08:22 | RADRPT ---
EXAM DATE/TIME: 02/18/2017 08:10 [facility] COMPARISON: CT BRAIN W/O CONTRAST, February 02, 2017, 11:57. INDICATIONS : Fall 2 weeks ago, head and neck pain. RADIATION DOSE: 31.00 CTDIvol (mGy) MEDICAL HISTORY : Cardiovascular disease. SURGICAL HISTORY : None. ENCOUNTER: Initial ACUITY: 2 weeks PAIN SCALE: 4/10 LOCATION: Bilateral cranial TECHNIQUE: Multiple contiguous axial images were obtained of the head. Using automated exposure control and adj ustment of the mA and/or kV according to patient size, radiation dose was kept as low as reasonably a chievable to obtain optimal diagnostic quality images. FINDINGS: CEREBRUM: Areas of encephalomalacia involving the left frontal lobe and left temporal lobe. These are stable fr om the prior study. The ventricles are normal for age. No evidence of midline shift, mass lesion, he morrhage or acute infarction. No extra-axial fluid collections are seen. POSTERIOR FOSSA: The cerebellum and brainstem are intact. The 4th ventricle is midline. The cerebellopontine angle i s unremarkable. EXTRACRANIAL: The visualized portion of the orbits is intact. SKULL: The calvaria is intact. No evidence of skull fracture. CONCLUSION: 1. No acute intracranial abnormality. 2. 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 This pattern would s uggest remote prior trauma. Caesar Holley Jr., MD on February 18, 2017 at 8:18 Board Certified Radiologist. This report was verified electronically.
--- NOTE | 2017-02-18 09:19 | RADRPT ---
EXAM DATE/TIME: 02/18/2017 08:10 [facility] COMPARISON: CT CERVICAL SPINE W/O CONTRAST, February 02, 2017, 11:57. INDICATIONS : Fall 2 weeks ago, head and neck pain. RADIATION DOSE: 20.02 CTDIvol (mGy) MEDICAL HISTORY : Cardiovascular disease. SURGICAL HISTORY : None. ENCOUNTER: Initial ACUITY: 2 weeks PAIN SCALE: 4/10 LOCATION: Bilateral neck TECHNIQUE: Volumetric scanning of the cervical spine was performed. Multiplanar reconstructions in the sagittal, coronal and oblique axial planes were performed. Using automated exposure control and adjustment o f the mA and/or kV according to patient size, radiation dose was kept as low as reasonably achievable to obtain optimal diagnostic quality images. FINDINGS: There are degenerative changes present in the cervical spine. Alignment is reasonably anatomic. Degenerative changes are seen at C1 and C2. C2-C3: Moderate facet disease is seen on the right with neural foramina encroachment. C3-C4: Bilateral facet disease is present with minimal right-sided neural foramina encroachment. C4-C5: Bilateral facet disease is present with uncinate ridging with mild bilateral neural foramina encroach ment worse on the right than the left. C5-C6: Uncinate ridging is present with bilateral neural foramina encroachment with mild spinal stenosis and moderate bilateral neural foramina encroachment. C6-C7: Mild facet disease is seen on the right worse than the left with mild right neural foramina encroachm ent. There is no significant spinal stenosis. C7-T1: Mild facet disease is evident. CONCLUSION: Degenerative changes as described above. There is no evidence for fracture. No significant degenera tive changes are seen at C5-C6 level. Poli Putnam MD FACR on February 18, 2017 at 9:03 Board Certified Radiologist. This report was verified electronically.
[2017-02-18] MEDS ORDERED: CYCL5TAB PO (09:31)
[2017-02-18] MEDS ORDERED: NAPR250T57 PO (09:31)
== END 2017-02-18 09:51 | disposition home or self-care (01) ==
LOC: NEPC 06:34
DX: M54.12 Radiculopathy, cervical region (principal); M43.6 Torticollis
CPT/HCPCS: 70450; 72125; 96372; 99283; J2360